=== PATIENT | male | born 1940 | race Caucasian/White ===

== ENCOUNTER → 2018-11-18 | Outpatient (CLI) | payer MEDICARE, BC ==
--- NOTE | 2018-11-18 15:55 | RADIOLOGY REPORT (SQ) ---
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 RADIONUCLIDE AND DOSE: 20.2 millicuries Tc99m MDP. The route of agent administration: Intravenous. ADDITIONAL DRUGS AND DOSES: None. TECHNIQUE: Routine delayed images at 3 hour post radionuclide injection acquired of the bony skeleto n including anterior and posterior whole-body projections and additional focused images as needed. LIMITATIONS: None. FINDINGS: BONES: Normal visualization without areas of photopenia or increased bony uptake of radiop harmaceutical. KIDNEYS: Symmetric excretion without obstruction. OTHER: No other significant finding. IMPRESSION: NORMAL BONE SCAN. COMMENT: Quality measure 147: Current bone scan is compared with any available plain radiographs, p rior bone scans, and CT/MRI. TECHNICAL DOCUMENTATION: JOB ID: [id number] [employer]- All Rights Reserved Reading location - IP/workstation name: [email or web address]
== END ==
LOC: RAD 11:18
PROVIDERS: ATTEND Urology
DX: C61 Malignant neoplasm of prostate (principal)
CPT/HCPCS: 78306; A9561; Q9969

== ENCOUNTER 2019-07-10 11:16 | Emergency (ER) | payer OTHER, MEDICARE, BC ==
--- NOTE | 2019-07-10 11:29 | ER Document Report ---
ED Medical Screen (RME) - General Chief Complaint: Back Pain Stated Complaint: BACK,HAND PAIN Time Seen by Provider: 07/10/19 11:24 Primary Care Provider: PERRY BATES MD [Primary Care Provider] - Follow up as needed Mode of Arrival: Wheelchair Information source: Patient Notes: 78-year-old male presented to ED for complaint of back pain upper back that goes down both arms. He states the pain also goes down the knees legs and feet. Did you fall he states he has not had any recent falls. States he does have a history of arthritis. He states he has never had pain in his upper back and down his legs and arms before 3 days ago. States he had cataract surgery 4 days ago he states he does have a history of high strong dates he has had a double bypass. Denies smoking drinking or using any type of drugs. I have greeted and performed a rapid initial assessment of this patient. A comprehensive ED assessment and evaluation of the patient, analysis of test results and completion of medical decision making process will be conducted by an additional ED providers. TRAVEL OUTSIDE OF THE [place] IN LAST 30 DAYS: No Past Medical History - Social History Frequency of alcohol use: None Drug Abuse: None Doctor's Discharge - Discharge Referrals: PERRY BATES MD [Primary Care Provider] - Follow up as needed
[2019-07-10 12:09] LABS: ABSOLUTE MONOCYTES (AUTO) 0.7 10^3/uL (0.1-1.4); ABSOLUTE NEUT (AUTO) 5.8 10^3/uL (1.7-8.2); BASOPHILS % (AUTO) 0.3 % (0-2); EOSINOPHILS % (AUTO) 0.1 % (0-6); HEMATOCRIT 33.3 % (37.9-51.0); HEMOGLOBIN 11.1 g/dL (13.5-17.0); LYMPHOCYTES % (AUTO) 12.7 % (13-45); MEAN CORPUSCULAR HEMOGLOBIN 28.2 pg (27.0-33.4); MEAN CORPUSCULAR HGB CONC 33.4 g/dL (32.0-36.0); MEAN CORPUSCULAR VOLUME 85 fl (80-97); MONOCYTES % (AUTO) 8.9 % (3-13); PLATELET COUNT 198 10^3/uL (150-450); RED BLOOD COUNT 3.94 10^6/uL (4.35-5.55); TOTAL CELLS COUNTED % (AUTO) 100 %; WHITE BLOOD COUNT 7.5 10^3/uL (4.0-10.5)
--- NOTE | 2019-07-10 12:13 | RADIOLOGY REPORT (SQ) ---
EXAM DESCRIPTION: CHEST 2 VIEWS COMPLETED DATE/TIME: 07/10/2019 12:00 pm REASON FOR STUDY: pain in back radiating down arms and legs COMPARISON: None. EXAM PARAMETERS: NUMBER OF VIEWS: two views TECHNIQUE: Digital Frontal and Lateral radiographic views of the chest acquired. RADIATION DOSE: NA LIMITATIONS: none FINDINGS: LUNGS AND PLEURA: No consolidation, pleural effusion or pneumothorax. MEDIASTINUM AND HILAR STRUCTURES: No mediastinal hilar contour abnormality. HEART AND VASCULAR STRUCTURES: Status post median sternotomy. The cardiac silhouette is borderline e nlarged. The pulmonary vasculature is within normal limits. BONES: Bilateral shoulder prostheses. HARDWARE: As above. OTHER: The left hemidiaphragm is elevated. IMPRESSION: Elevated left hemidiaphragm and borderline cardiomegaly without a superimposed acute car diopulmonary process. TECHNICAL DOCUMENTATION: JOB ID: [id number] [employer]- All Rights Reserved Reading location - IP/workstation name: [email or web address]
[2019-07-10 12:14] LABS: ALBUMIN 3.8 g/dL (3.5-5.0); ALKALINE PHOSPHATASE 215 U/L (38-126); ANION GAP 9 (5-19); ASPARTATE AMINO TRANSFERASE 45 U/L (17-59); BILIRUBIN,DIRECT 0.9 mg/dL (0.0-0.4); BILIRUBIN,TOTAL 2.1 mg/dL (0.2-1.3); BLOOD UREA NITROGEN 23 mg/dL (7-20); CALCIUM 9.2 mg/dL (8.4-10.2); CARBON DIOXIDE 27 mmol/L (22-30); CHLORIDE 100 mmol/L (98-107); GLUCOSE 172 mg/dL (75-110); TOTAL PROTEIN 7.3 g/dL (6.3-8.2)
--- NOTE | 2019-07-10 12:15 | RADIOLOGY REPORT (SQ) ---
EXAM DESCRIPTION: T SPINE AP/LAT COMPLETED DATE/TIME: 07/10/2019 12:00 pm REASON FOR STUDY: pain in back radiating down arms and legs COMPARISON: None. NUMBER OF VIEWS: Two views. TECHNIQUE: AP and lateral radiographic images acquired of the thoracic spine. LIMITATIONS: Evaluation of the cervicothoracic junction is limited. FINDINGS: MINERALIZATION: Normal. ALIGNMENT: Normal. No scoliosis. VERTEBRAE: Evaluation of the T1, T2 and T3 vertebral bodies on the lateral views is limited. The tressa tebral body heights of the other thoracic vertebra are preserved. There is no fracture. DISCS: There are bridging anterolateral osteophytes throughout the thoracic spine. HARDWARE: None in the thoracic spine. MEDIASTINUM AND SOFT TISSUES: Borderline cardiomegaly and elevation of the left hemidiaphragm. VISUALIZED LUNG PETERSON: Clear. OTHER: No other finding. IMPRESSION: Limited evaluation of the cervicothoracic junction. No definite fracture or malalignmen t of the thoracic spine. TECHNICAL DOCUMENTATION: JOB ID: [id number] [employer]- All Rights Reserved Reading location - IP/workstation name: [email or web address]
[2019-07-10 12:16] LABS: POTASSIUM 4.3 mmol/L (3.6-5.0)
--- NOTE | 2019-07-10 12:18 | RADIOLOGY REPORT (SQ) ---
EXAM DESCRIPTION: L SPINE WHOLE COMPLETED DATE/TIME: 07/10/2019 12:00 pm REASON FOR STUDY: pain in back radiating down arms and legs COMPARISON: None. NUMBER OF VIEWS: Five views including obliques. TECHNIQUE: AP, lateral, oblique, and sacral radiographic images acquired of the lumbar spine. LIMITATIONS: None. FINDINGS: MINERALIZATION: Normal. SEGMENTATION: There are 5 lumbar-type vertebral bodies. There is no transitional anatomy at the lumb osacral junction. ALIGNMENT: Grade 1 retrolisthesis of L2 relative to L3. VERTEBRAE: The lumbar vertebral body heights are preserved. There is no fracture. DISCS: The intervertebral disc spaces at L3-L4, L4-L5 and L5-S1 are narrowed and there is associated endplate sclerosis and osteophyte formation. At L4-L5 there is evidence of vacuum phenomenon. POSTERIOR ELEMENTS: Intact. There is hypertrophy and sclerosis of the facet joints from L3-L4 to L5- S1. HARDWARE: None in the spine. PARASPINAL SOFT TISSUES: Normal. PELVIS: Intact. OTHER: No other finding. 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 TECHNICAL DOCUMENTATION: JOB ID: [id number] [employer]- All Rights Reserved Reading location - IP/workstation name: [email or web address]
--- NOTE | 2019-07-10 17:09 | RADIOLOGY REPORT (SQ) ---
EXAM DESCRIPTION: CT HEAD WITHOUT COMPLETED DATE/TIME: 07/10/2019 4:57 pm REASON FOR STUDY: Neuro deficits COMPARISON: None. TECHNIQUE: Axial images acquired through the brain without intravenous contrast. Images reviewed wi th bone, brain and subdural windows. Additional sagittal and coronal reconstructions were generated. Images stored on PACS. All CT scanners at this facility use dose modulation, iterative reconstruction, and/or weight based d osing when appropriate to reduce radiation dose to as low as reasonably achievable (ALARA). [facility]: Dose Right [facility]: CareDose [facility]: Dose Right [facility]: Teradose 4D [facility]: Smart Tellyo RADIATION DOSE: CT Rad equipment meets quality standard of care and radiation dose reduction techniq ues were employed. CTDIvol: 53.2 mGy. DLP: 1044 mGy-cm. mGy. LIMITATIONS: None. FINDINGS: VENTRICLES: Normal size and contour. CEREBRUM: Cortical atrophy. No masses. No hemorrhage. No midline shift. No evidence for acute inf arction. Normal torres/white matter differentiation. No areas of low density in the white matter. CEREBELLUM: There are areas of encephalomalacia in both hemispheres of the cerebellum. EXTRAAXIAL SPACES: No fluid collections. No masses. ORBITS AND GLOBE: No intra- or extraconal masses. Normal contour of globe without masses. CALVARIUM: No fracture. PARANASAL SINUSES: No fluid or mucosal thickening. SOFT TISSUES: No mass or hematoma. OTHER: No other significant finding. IMPRESSION: Involutional changes. 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 No acu te intracranial imaging findings. EVIDENCE OF ACUTE STROKE: NO. COMMENT: Quality ID # [id number]: Final reports with documentation of one or more dose reduction techniques (e.g., Automated exposure control, adjustment of the mA and/or kV according to patient size, use of iterative reconstruction technique) TECHNICAL DOCUMENTATION: JOB ID: [id number] [employer]- All Rights Reserved Reading location - IP/workstation name: [email or web address]
[2019-07-10 18:10] LABS: APPEARANCE,URINE SLIGHTLY-CLOUDY; BILIRUBIN,URINE NEGATIVE (NEGATIVE); COLOR,URINE DARK YELLOW; GLUCOSE, URINE NEGATIVE (NEGATIVE); KETONES,URINE NEGATIVE (NEGATIVE); PROTEIN,URINE 100 mg/dL (NEGATIVE); URINE SPECIFIC GRAVITY 1.028
--- NOTE | 2019-07-10 18:23 | EKG REPORT ---
SEVERITY:- ABNORMAL ECG - ATRIAL FIBRILLATION NONSPECIFIC INTRAVENTRICULAR CONDUCTION DELAY : Confirmed by: Dav Dorsey MD 10-Jul-2019 18:22:18
[2019-07-10 18:47] LABS: CREATINE KINASE MB 0.69 ng/mL (<4.55); NT PRO BNP 3790 pg/mL (<450)
[2019-07-10 18:47] LABS: INTERNATIONAL RATION (INR) 3.59; PROTHROMBIN TIME 36.7 SEC (11.4-15.4)
[2019-07-10 18:48] LABS: PARTIAL THROMBOPLASTIN TIME 51.1 SEC (23.5-35.8)
[2019-07-10 18:53] LABS: TROPONIN I < 0.012 ng/mL
--- NOTE | 2019-07-10 21:36 | ER Document Report ---
ED General Pain - General Chief Complaint: Back Pain Stated Complaint: BACK,HAND PAIN Time Seen by Provider: 07/10/19 11:24 Primary Care Provider: PERRY BATES MD [Primary Care Provider] - Follow up as needed Mode of Arrival: Wheelchair Information source: Patient Notes: 78-year-old male presents to the emergency department with a complaint of neck pain and some tingling in his thumbs bilaterally. States that [facility] and presents to the emergency department with concerns that he might be having a stroke. He denies speech, facial, musculoskeletal weakness or changes. The patient is on warfarin chronically and is a diabetic with history of hypertension and with a history of recent cataract surgery. TRAVEL OUTSIDE OF THE [place] IN LAST 30 DAYS: No - Related Data Allergies/Adverse Reactions: No Known Allergies Allergy (Unverified 07/10/19 19:34) Past Medical History - General Information source: Patient - Social History Smoking Status: Never Smoker Frequency of alcohol use: None Drug Abuse: None Family History: Reviewed & Not Pertinent Patient has suicidal ideation: No Patient has homicidal ideation: No - Past Medical History Cardiac Medical History: Reports: Hx Heart Attack Past Surgical History: Reports: Hx Cardiac Surgery Review of Systems - Review of Systems Notes: REVIEW OF SYSTEMS GENERAL: Negative for any nausea, vomiting, fevers, chills, or weight loss. NEUROLOGIC: Negative for any blurry vision, blind spots, double vision, facial asymmetry, dysphagia, dysarthria, hemiparesis, hemisensory deficits, vertigo, ataxia. HEENT: Negative for any head trauma, neck trauma, neck stiffness, photophobia, phonophobia, sinusitis, rhinitis. CARDIAC: Negative for any chest pain PULMONARY: Negative for any shortness of breath GASTROINTESTINAL: Negative for any abdominal pain, nausea, vomiting, bright red blood per rectum, melena. GENITOURINARY: Negative for any dysuria, hematuria, incontinence. INTEGUMENTARY: Negative for any rashes, cuts, insect bites. RHEUMATOLOGIC: Negative for any joint pains, photosensitive rashes, history of vasculitis or kidney problems. HEMATOLOGIC: Negative for any abnormal bruising, frequent infections or bleeding. Physical Exam - Vital signs Vitals: Temp Pulse Resp BP Pulse Ox 97.9 F 112 H 22 H 119/77 98 07/10/19 11:23 07/10/19 11:23 07/10/19 11:23 07/10/19 11:23 07/10/19 11:23 - Notes Notes: PHYSICAL EXAMINATION: GENERAL: Chronically ill-appearing 78-year-old man in no acute distress HEAD: Atraumatic, normocephalic. EYES: Pupils equal round and reactive to light, extraocular movements intact, sclera anicteric, conjunctiva are normal or wearing dark glasses ENT: nares patent, oropharynx clear without exudates. Moist mucous membranes. NECK: Normal range of motion, supple without lymphadenopathy LUNGS: Breath sounds clear to auscultation bilaterally and equal. No wheezes rales or rhonchi. HEART: Regular rate and rhythm without murmurs ABDOMEN: Soft, nontender, normoactive bowel sounds. No guarding, no rebound. No masses appreciated. EXTREMITIES: Normal range of motion, no pitting or edema. No cyanosis. NEUROLOGICAL: No focal neurological deficits. Moves all extremities spontaneously and on command. PSYCH: Normal mood, normal affect. SKIN: Warm, Dry, normal turgor, no rashes or lesions noted. Course - Re-evaluation Re-evalutation: 07/10/19 21:37 Patient had a multiple radiologic studies include lumbar and thoracic x-rays along with CT scan of the head. 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 He continues to have some pain in the upper trapezius muscle group and also lower back pain. I have explained to the patient that these are chronic problems which can be managed with Tylenol, he is instructed to continue his usual medications and follow-up with the outpatient clinic as needed. The patient appears to understand this plan and is in agreement. - Vital Signs Vital signs: Temp Pulse Resp BP Pulse Ox 98.7 F 87 20 140/95 H 97 07/10/19 21:54 07/10/19 21:54 07/10/19 21:54 07/10/19 21:54 07/10/19 21:54 - Laboratory Result Diagrams: 07/10/19 11:40 07/10/19 11:40 Laboratory results interpreted by me: 07/10/19 07/10/19 07/10/19 11:40 11:40 11:40 RBC 3.94 L Hgb 11.1 L Hct 33.3 L RDW 15.0 H Lymph % (Auto) 12.7 L PT APTT Sodium 136.3 L BUN 23 H Glucose 172 H Total Bilirubin 2.1 H Direct Bilirubin 0.9 H Alkaline Phosphatase 215 H NT-Pro-B Natriuret Pep 3790 H Urine Protein Urine Urobilinogen Urine Ascorbic Acid 07/10/19 07/10/19 17:42 18:19 RBC Hgb Hct RDW Lymph % (Auto) PT 36.7 H APTT 51.1 H Sodium BUN Glucose Total Bilirubin Direct Bilirubin Alkaline Phosphatase NT-Pro-B Natriuret Pep Urine Protein 100 H Urine Urobilinogen 4.0 H Urine Ascorbic Acid 40 H 07/10/19 21:40 I have reviewed laboratory data and used this information for the treatment decisions regarding the patient. - Diagnostic Test Radiology reviewed: Image reviewed, Reports reviewed - Chest x-ray with right kinga-diaphragm, cardiomegaly, no acute infiltrate or effusion T-spine x-ray: DJD, no compression fractures or osteopenic lesions Lumbar spine x-ray: Degenerative disc disease, no acute compression fracture - EKG Interpretation by Ms Rhythm: A.Fib Leland/QRS: IVCD - Nonspecific Discharge - Discharge Clinical Impression: Degenerative joint disease (DJD) of lumbar spine, Musculoskeletal pain Degenerative joint disease of thoracic spine Qualifiers: Spinal osteoarthritis complication: unspecified spinal osteoarthritis Qualified Code(s): M47.814 - Spondylosis without myelopathy or radiculopathy, thoracic region Condition: Good Disposition: HOME, SELF-CARE Instructions: Chronic Back Pain ([facility]), Low Back Pain ([facility]) Additional Instructions: May use Tylenol for pain May use tramadol for pain which is not controlled by Tylenol. Prescriptions: Tramadol HCl [Ultram 50 mg Tablet] 50 mg PO Q4HP PRN #10 tab PRN Reason: Referrals: PERRY BATES MD [Primary Care Provider] - Follow up as needed
[2019-07-10 21:54] VITALS: BP 140/95
== END 2019-07-10 22:12 | disposition home or self-care (01) ==
LOC: ER 11:16
DX: M47.814 Spondylosis without myelopathy or radiculopathy, thoracic region (principal); M51.36 Other intervertebral disc degeneration, lumbar region; M79.18 Myalgia, other site; M54.2 Cervicalgia; R20.2 Paresthesia of skin; I48.91 Unspecified atrial fibrillation; I11.9 Hypertensive heart disease without heart failure; E11.9 Type 2 diabetes mellitus without complications; Z98.890 Other specified postprocedural states; Z79.01 Long term (current) use of anticoagulants; Z86.73 Personal history of transient ischemic attack (TIA), and cerebral infarction without residual deficits
CPT/HCPCS: 36415; 70450; 71046; 72070; 72110; 80053; 81001; 82553; 83880; 84484; 85025; 85610; 85730; 93005; 93010; 99284

== ENCOUNTER → 2019-08-06 | Outpatient (CLI) | payer MEDICARE ==
--- NOTE | 2019-08-06 10:51 | RADIOLOGY REPORT (SQ) ---
EXAM DESCRIPTION: CAROTID DOPPLER COMPLETED DATE/TIME: 08/06/2019 10:22 am REASON FOR STUDY: PVD I73.9 PERIPHERAL VASCULAR DISEASE, UNSPECIFIED COMPARISON: CT brain 07/10/2019 TECHNIQUE: Grayscale ultrasound, Doppler velocity and spectra, and color Doppler images acquired of the extra-cranial carotid and vertebral arteries. Images stored on PACS. LIMITATIONS: None. FINDINGS: RIGHT CAROTID CCA Velocities: Within normal limits. ICA Velocities Peak systolic 0.52 m/s. End diastolic 0.15 m/s. Proximal ICA/CCA peak systolic ratio normal. Spectra normal. No significant plaque. LEFT CAROTID CCA Velocities: Within normal limits. ICA Velocities Peak systolic 0.58 m/s. End diastolic 0.14 m/s. Proximal ICA/CCA peak systolic ratio normal. Spectra normal. No significant plaque. VERTEBRAL ARTERIES: Antegrade flow. Normal waveforms. SUBCLAVIAN ARTERIES: Not evaluated OTHER: No other significant finding. IMPRESSION: NO HEMODYNAMICALLY SIGNIFICANT STENOSIS. COMMENT: Quality ID #[id number]: Velocity criteria are extrapolated from the diameter data as defined by t he Society of Radiologists in Ultrasound Consensus Conference. Radiology 2003: 229; 340-346. TECHNICAL DOCUMENTATION: JOB ID: [id number] [employer]- All Rights Reserved Reading location - IP/workstation name: [email or web address]
--- NOTE | 2019-08-07 12:48 | XCELERA REPORT ---
[address] [address] Lower Extremity Arterial Evaluation Name: ANDRES WALLS Age: 78 yrs Gender: Male : 1940 Patient Status: Outpatient Patient Location: [facility] Study Date: 08/06/2019 08:19 AM Procedure: A color flow and duplex scan of the lower extremity arteries was performed bilaterally with velocity and waveform anaylsis. Reason For Study: PVD Ordering Physician: PERRY BATES Performed By: Andrey Pedro Measurements and Calculations Right Left NIGHT SHIFT MANAGER PSV 96.8 94.3 cm/sec Prox PFA PSV -117.3 -74.2 cm/sec Prox SFA PSV 101.2 72.8 cm/sec Mid SFA PSV -76.8 -56.6 cm/sec Dist SFA PSV -53.8 -55.8 cm/sec Prox Pop A PSV 44.3 39.3 cm/sec Dist CHER PSV 118.0 56.2 cm/sec Dist M[employer]T [employer]KER PSV -118.7 130.4 cm/sec Thuan Pedis PSV 84.4 131.3 cm/sec Right Side Arterial Evaluation Normal velocity and triphasic waveforms noted from the Common Femoral artery to the infrageniculate vessels . Ankle Brachial index not done. Left Side Arterial Evaluation Normal velocity and triphasic waveforms noted from the Common Femoral artery to the infrageniculate vessels . Ankle Brachial index not done. Interpretation Summary No hemodynamically significant lesions in the bilateral lower extremities, on duplex imaging, at rest. : PERRY BATES > Hebert Hines
== END ==
LOC: SP 06:14
PROVIDERS: ATTEND Internal Medicine Geriatric Medicine
DX: I73.9 Peripheral vascular disease, unspecified (principal)
CPT/HCPCS: 93880; 93925